=== PATIENT | male | born 1945 | race Two or more races ===

== ENCOUNTER 2022-09-03 16:48 | Inpatient (IN) | payer MEDICARE ==
[~2022-09-03] VITALS: Ht 167.6 cm; Wt 72.6 kg
[2022-09-03] MEDS ORDERED: LOTENSIN (17:11)
[2022-09-03] MEDS ORDERED: ARICEPT (17:11)
[2022-09-03] MEDS ORDERED: COLCHICINE (17:11)
[2022-09-03 17:18] LABS: HEMATOCRIT 33.6 % (36.7-47.1); MEAN CORPUSCULAR HEMOGLOBIN 28.8 uug (23.8-33.4); MEAN CORPUSCULAR VOLUME 86.9 fL (73.0-96.2); PLATELET COUNT (AUTO) 233 K/uL (152-348)
[2022-09-03 17:29] LABS: CARBON DIOXIDE 24 mmol/L (21-32); CHLORIDE 105 mmol/L (98-107); CREATININE 1.4 mg/dL (0.6-1.3); GLUCOSE 138 mg/dL (74-106); POTASSIUM 3.9 mmol/L (3.5-5.1); UREA NITROGEN, BLOOD 28 mg/dL (7-18)
[2022-09-03] MEDS ORDERED: IV NORMAL SALINE 1000 ML BAG IV ONE (17:45)
--- NOTE | 2022-09-03 17:55 | NUR ---
Patient's son is at the bedside, pending CT scans at this time.
--- NOTE | 2022-09-03 18:02 | NUR ---
Code STROKE was called per Dr Rosales after patient's son came to ER and talked to our doctor.
[2022-09-03] MEDS ORDERED: IOHEXOL 350 100 ML INFUS..BTL ONE (18:22)
[2022-09-03] MEDS ORDERED: SWABABLE VALVE TRANSFER SET EA MC ONE (18:22)
[2022-09-03] MEDS ORDERED: IV NORMAL SALINE 250 ML IV ONE (18:22)
--- NOTE | 2022-09-03 18:50 | NUR ---
Patient is in CT scan.
--- NOTE | 2022-09-03 18:57 | NUR ---
EKG machine is in room 5, pending patient's arrival from radiology department.
[2022-09-03 19:06] LABS: MAGNESIUM 1.9 mg/dL (1.8-2.4)
--- NOTE | 2022-09-03 19:06 | NUR ---
EKG done. Patient has fine tremors affecting the EKG tracings, Dr Moyer notified.
[2022-09-03] MEDS ORDERED: ASPIRIN 81 MG TAB.CHEW ONE (19:13)
[2022-09-03] MEDS ORDERED: CYANOCOBALAMIN 1000 MCG/ML VIAL IM ONE (19:15)
[2022-09-03] MEDS ORDERED: ASPIRIN 81 MG TAB.CHEW PO ONE (19:15)
[2022-09-03] MEDS ORDERED: CYANOCOBALAMIN 1000 MCG/ML VIAL ONE (19:22)
--- NOTE | 2022-09-03 19:35 | NUR ---
"3rd ER nurse is not coming." per nursing service and repair supervisor. Nursing SBAR was given to ER charge master specialist Albert.
--- NOTE | 2022-09-03 19:57 | NUR ---
Report given to Macrina BOONE Tele.
[2022-09-03] MEDS ORDERED: SYRI-29 MC (20:03)
[2022-09-03] MEDS ORDERED: MECO10006 IM (20:03)
[2022-09-03 20:49] VITALS: BP 147/81
[2022-09-03] MEDS ORDERED: BISA-79 PO (21:39)
[2022-09-03] MEDS ORDERED: TADA5TAB2 PO (21:39)
[2022-09-03] MEDS ORDERED: DONE5TAB7 PO (21:39)
[2022-09-03] MEDS ORDERED: sinemet (21:39)
[2022-09-03] MEDS ORDERED: ASPI-495 PO (21:39)
[2022-09-03] MEDS ORDERED: CLON-418 PO (21:39)
[2022-09-03] MEDS ORDERED: CARV25TA2 PO (21:39)
[2022-09-03] MEDS ORDERED: BENA20TA9 PO (21:39)
[2022-09-03] MEDS ORDERED: HYDROCODONE/APAP 5-325MG TABLET PO PRN (21:45)
[2022-09-03] MEDS ORDERED: ONDANSETRON 4 MG/2 ML VIAL IV PRN (21:45)
[2022-09-03] MEDS ORDERED: CLOPIDOGREL 75 MG TABLET PO ONE (21:45)
[2022-09-03] MEDS ORDERED: REMEDY ESSENTIAL ZINC PASTE 113 GM TP PRN (21:45)
[2022-09-03] MEDS ORDERED: ACETAMINOPHEN 325 MG TABLET PO PRN (21:45)
[2022-09-03] MEDS ORDERED: MAGNESIUM HYDROXIDE 30 ML LIQUID UDC PO PRN (21:45)
[2022-09-03] MEDS ORDERED: BISACODYL 5 MG TABLET.DR PO PRN (22:00)
[2022-09-03] MEDS: ZOLPIDEM 5 MG TABLET PO PRN (22:18)
[2022-09-04 04:30] VITALS: BP 125/72
[2022-09-04] MEDS: PANTOPRAZOLE SODIUM 40 MG TABLET.DR PO SCH (06:34)
[2022-09-04] MEDS: BLOOD SUGAR DIAGNOSTIC 1 EACH STRIP VI SCH ×4 (06:34→21:17)
[2022-09-04 06:35] LABS: HEMATOCRIT 33.4 % (36.7-47.1); MEAN CORPUSCULAR HEMOGLOBIN 29.2 uug (23.8-33.4); MEAN CORPUSCULAR VOLUME 87.1 fL (73.0-96.2); PLATELET COUNT (AUTO) 218 K/uL (152-348)
--- NOTE | 2022-09-04 06:42 | NUR ---
SHIFT NOTE: RECEIVED PATIENT FROM ER PT IS ALERT AND ORIENTED X4 UNDERSTANDS VINCENTIAN BUT SPEAKS VIET[place]ESE. PT DAUGHTER BREANN CALLED GAVE MEDICATION PT TAKING AT HOME AND WANTS PATIENT TO HAVE A SLEEPING PILL. PT CAME FROM ER WITH A DX R/O STROKE PT HAS LT SIDED WEAKNESS AND PERFORMED SWALLOW EVALUATION AT BEDSIDE NO SIGNS OF CHOKING OR ASPIRATION WHEN DRINKING WATER. PT GIVEN A SANDWICH AND JUICE TOLERATED WELL AND GIVEN AMBIEN FOR SLEEP. PT AM ACCUCHEK IS 85. PT IS A FULL CODE AND NO SIGNS OF DISTRESS NOTED. WILL CONTINUE TO MONITOR FOR SAFETY.
[2022-09-04 06:49] LABS: CREATININE 1.1 mg/dL (0.6-1.3); POTASSIUM 3.7 mmol/L (3.5-5.1)
--- NOTE | 2022-09-04 06:49 | NUR ---
PT SLEPT THROUGHOUT THE NIGHT FALL AND SAFETY PRECAUTION MAINTAINED. STROKE TEST DONE ORDERED PT RIGHT SIDE IS STRONGER THAN LEFT CAN'T RAISE LEG BUT IS ABLE TO RAISE ARM SLIGHTLY. WILL CONTINUE TO MONITOR FOR SAFETY AND ENDORSE TO AM NURSE.
[2022-09-04 06:50] LABS: MAGNESIUM 1.8 mg/dL (1.8-2.4); PHOSPHOROUS 3.1 mg/dL (2.5-4.9)
[2022-09-04 06:58] LABS: THYROID STIMULATING HORMONE 1.594 mIU/mL (0.358-3.740)
--- NOTE | 2022-09-04 07:30 | NUR ---
Dr rayo here to see patient. New order received for CT of left shoulder. New order put in for ortho consult. Pt Left side weakness noted. 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 PT is in no acute distress. Call light is within reach. Tele SNR.
--- NOTE | 2022-09-04 08:30 | NUR ---
MELE SINGH at bedside. Followed up with pt's SINEM[facility] reconciliation. Pharmacy closed. MELE singh will bring Meds.
[2022-09-04] MEDS: ASPIRIN 81 MG TAB.CHEW GT SCH (08:38)
[2022-09-04] MEDS: CLOPIDOGREL 75 MG TABLET GT SCH (08:38)
[2022-09-04] MEDS ORDERED: CARVEDILOL 25 MG TABLET PO SCH (09:00)
[2022-09-04 11:38] VITALS: BP 133/75
[2022-09-04] MEDS ORDERED: BLOOD SUGAR DIAGNOSTIC 1 EACH STRIP VI SCH (12:00)
[2022-09-04 13:24] VITALS: BP 133/75
--- NOTE | 2022-09-04 16:00 | NUR ---
Notified Ephraim That we cant do MRI of left shoulder for dr rowley secondary to pt's brain stimulator. Discussed with son about the MRI. Son states that We cannot do MRI with the brain stimulator.
[2022-09-04 16:10] VITALS: BP 143/85
[2022-09-04] MEDS ORDERED: CARB1TAB21 PO (16:25)
[2022-09-04] MEDS: IV 1/2NS 1000 ML 1,000 ML IV PRN (16:48)
[2022-09-04 20:00] VITALS: BP 131/82
[2022-09-04] MEDS ORDERED: DONEPEZIL 5 MG TABLET PO SCH (21:00)
[2022-09-04] MEDS ORDERED: SIMVASTATIN 40 MG TABLET PO SCH (21:00)
[2022-09-04] MEDS: ZOLPIDEM 5 MG TABLET PO PRN (22:33)
[2022-09-04] MEDS ORDERED: CARBIDOPA/LEVODOPA 25-100MG TABLET PO SCH (23:00)
[2022-09-05] VITALS (7 sets, daily range): BP systolic 97–142; BP diastolic 50–82
[2022-09-05 01:11] LABS: *BILIRUBIN,URIN NEGATIVE (NEGATIVE); *CLARITY,URINE CLEAR (CLEAR); *COLOR,URINE YELLOW (YELLOW); *KETONES,URINE NEGATIVE (NEGATIVE); *UROBILINOGEN,URINE 0.2 E.U./dl (NORMAL); LEUKOCYTE ESTERASE ,URINE NEGATIVE (NEGATIVE); NITRITE, URINE NEGATIVE (NEGATIVE); UGLUCOSE NEGATIVE (NEGATIVE)
[2022-09-05 01:48] LABS: *BLOOD, URINE NEGATIVE (NEGATIVE)
[2022-09-05] MEDS: PANTOPRAZOLE SODIUM 40 MG TABLET.DR PO SCH (05:48)
[2022-09-05] MEDS ORDERED: CARBIDOPA/LEVODOPA 25-100MG TABLET PO SCH (06:00)
[2022-09-05] MEDS: BLOOD SUGAR DIAGNOSTIC 1 EACH STRIP VI SCH ×3 (06:19→17:05)
[2022-09-05 06:33] LABS: HEMATOCRIT 36.2 % (36.7-47.1); MEAN CORPUSCULAR HEMOGLOBIN 28.9 uug (23.8-33.4); MEAN CORPUSCULAR VOLUME 86.4 fL (73.0-96.2); PLATELET COUNT (AUTO) 240 K/uL (152-348)
[2022-09-05 06:50] LABS: CARBON DIOXIDE 26 mmol/L (21-32); CHLORIDE 104 mmol/L (98-107); CREATININE 1.2 mg/dL (0.6-1.3); GLUCOSE 98 mg/dL (74-106); MAGNESIUM 1.7 mg/dL (1.8-2.4); POTASSIUM 3.6 mmol/L (3.5-5.1); UREA NITROGEN, BLOOD 16 mg/dL (7-18)
[2022-09-05] MEDS: ASPIRIN 81 MG TAB.CHEW GT SCH (08:38)
[2022-09-05] MEDS: CLOPIDOGREL 75 MG TABLET GT SCH (08:38)
[2022-09-05] MEDS ORDERED: MAGNESIUM OXIDE 400 MG TABLET PO ONE (09:30)
[2022-09-05] MEDS: CARVEDILOL 25 MG TABLET PO SCH ×2 (09:56→17:07)
[2022-09-05] MEDS: IV 1/2NS 1000 ML 1,000 ML IV PRN (10:21)
[2022-09-05] MEDS ORDERED: LIDOCAINE HCL 1% 20 ML VIAL IJ PRN (13:45)
[2022-09-05] MEDS ORDERED: LIDOCAINE HCL 1% 20 ML VIAL IJ ONE (13:45)
[2022-09-05] MEDS ORDERED: [UNRECOGNIZED DRUG - OTHER] SL SCH (14:00)
[2022-09-05] MEDS ORDERED: TRIAMCINOLONE ACETONIDE 40 MG/1 ML VIAL IM ONE (14:00)
[2022-09-05] MEDS ORDERED: PANT40TA49 PO (17:39)
[2022-09-05] MEDS ORDERED: SIMV-49 PO (17:39)
[2022-09-05] MEDS ORDERED: CLOP75TA33 GT (17:39)
--- NOTE | 2022-09-05 18:30 | NUR ---
Discharge instructions given to Marti SHABAZZ. VS 135/61-80 hr. PT wanted to know side effects of cortisone meds. Told son that side effects of cortisone chart per pharmacy is Head Ache and Mood changes in behavior. IV d/c. Education stroke packet given and to limit salty foods. Per son will read at home. Discussed with pt new meds purpose and side effects. Instructed son to keep an eye on pt and fall prevention as pt is on anticoagulant. Instructed SON to follow up with neurology and ortho per dr Ye. no acute distress noted. Pt's left side weakness and mental status same from prior assessment. PT stable for discharge.
== END 2022-09-05 18:40 | disposition hospice, home (50) | DRG 557 ==
LOC: ER 16:48 → TELE3 20:05 → MEDSURG3 09-05 18:39
PROVIDERS: ADMIT Student in an Organized Health Care Education/Training Program; ATTEND Student in an Organized Health Care Education/Training Program
DX: M75.52 Bursitis of left shoulder (principal); N17.0 Acute kidney failure with tubular necrosis; J81.1 Chronic pulmonary edema; G20 Parkinson's disease; I10 Essential (primary) hypertension; I25.5 Ischemic cardiomyopathy; Z96.82 Presence of neurostimulator; R53.1 Weakness; W19.XXXA Unspecified fall, initial encounter; Y93.9 Activity, unspecified; Y92.009 Unspecified place in unspecified non-institutional (private) residence as the place of occurrence of the external cause; I70.90 Unspecified atherosclerosis; R26.81 Unsteadiness on feet; D50.9 Iron deficiency anemia, unspecified; D63.8 Anemia in other chronic diseases classified elsewhere
CPT/HCPCS: 36415; 70450; 70496; 71045; 71260; 72125; 73030; 73200; 73551; 83735; 84100; 84443; 84484; 85025; 85730; 93005; 93307; A4663; G0378; J3301; J3420; J3490; J7040; Q9967